=== PATIENT | male | born 1970 | race Caucasian/White ===

== ENCOUNTER 2017-05-04 09:48 | Outpatient (CLI) | payer BC ==
[2017-05-04 21:41] LABS: TOTAL PROTEIN 7.4 g/dL (6.0-8.5)
== END 2017-05-04 09:50 ==
LOC: LAB 09:48
PROVIDERS: ATTEND Family Medicine
DX: E11.9 Type 2 diabetes mellitus without complications (principal); I10 Essential (primary) hypertension
CPT/HCPCS: 36415; 80053; 82043; 83036

== ENCOUNTER 2017-11-08 09:58 | Outpatient (CLI) | payer BC ==
[2017-11-08 10:58] LABS: eGFR (African) > 60; eGFR (Non-African) > 60
== END 2017-11-08 10:00 ==
LOC: LAB 09:58
PROVIDERS: ATTEND Family Medicine
DX: E11.9 Type 2 diabetes mellitus without complications (principal); I10 Essential (primary) hypertension
CPT/HCPCS: 36415; 80053; 80061; 82043; 83036

== ENCOUNTER 2018-05-07 09:30 | Outpatient (CLI) | payer BC ==
[2018-05-07 10:50] LABS: eGFR (African) > 60; eGFR (Non-African) > 60
== END 2018-05-07 09:31 ==
LOC: LAB 09:30
PROVIDERS: ATTEND Family Medicine
DX: E11.9 Type 2 diabetes mellitus without complications (principal)
CPT/HCPCS: 36415; 80053; 83036

== ENCOUNTER 2018-11-05 08:55 | Outpatient (CLI) | payer BC ==
[2018-11-05 10:41] LABS: eGFR (Non-African) > 60
== END 2018-11-05 08:56 ==
LOC: LAB 08:55
PROVIDERS: ATTEND Family Medicine
DX: E11.9 Type 2 diabetes mellitus without complications (principal)
CPT/HCPCS: 36415; 80053; 82043; 83036

== ENCOUNTER 2019-11-04 08:57 | Outpatient (CLI) | payer BC ==
[2019-11-04 09:33] LABS: A1C 8.7 % (<5.7)
[2019-11-04 09:52] LABS: HDL 29 mg/dL (>40); eGFR (Non-African) > 60
== END 2019-11-04 09:02 ==
LOC: LAB 08:57
PROVIDERS: ATTEND Family Medicine
DX: E11.9 Type 2 diabetes mellitus without complications (principal); I10 Essential (primary) hypertension
CPT/HCPCS: 36415; 80053; 80061; 82043; 83036